=== PATIENT | male | born 1955 | race Caucasian/White ===

== ENCOUNTER 2019-01-15 10:09 | Emergency (ER) | payer BC ==
--- NOTE | 2019-01-15 11:01 | EDM.PDOC ---
ED HPI GENERAL MEDICAL PROBLEM - General Chief Complaint: Upper Extremity Injury/Pain Stated Complaint: RIGHT KNEE AND SHOULDER PAIN Time Seen by Provider: 01/15/19 11:00 Source of Information: Reports: Patient History Limitations: Reports: No Limitations - History of Present Illness INITIAL COMMENTS - FREE TEXT/NARRATIVE: 63-year-old male who reports problems with degenerative disease in his left shoulder and left knee who for about the past week as been having pain in his right knee (particularly when going from sitting to standing or pushing off) and his right shoulder. The right shoulder occurred more so after strenuous use with his right arm where he thinks he might have pulled something. However, because his left shoulder and left knee have pain, he uses his right arm and right leg predominantly to get up and move around and he feels that he has injured these areas over time. He reports that the pain in his right shoulder as about a 7-8/10 when he uses it and similar in his right knee when he bends at the knee or pushes off on his right leg. It is a sharp and aching pain. It is worse with activity. He has had no redness or swelling to the right knee or right shoulder. No fever. No chest pain. No shortness of breath. No nausea or vomiting. No localized area of weakness or dizziness. There are no other associated signs or symptoms. There are no other modifying factors. Onset: Other (Approximately one week) Duration: Getting Worse Location: Reports: Upper Extremity, Right (Right shoulder), Lower Extremity, Right (Knee) Quality: Reports: Ache, Sharp, Throbbing Severity: Moderate Improves with: Reports: Immobilization, Rest Worsens with: Reports: Movement Context: Reports: Other (As above) Associated Symptoms: Reports: No Other Symptoms Treatments [employer]: Reports: Acetaminophen R shoulder & knee Pain Score (Numeric/FACES): 8 - Related Data Allergies Allergy/AdvReac Type Severity Reaction Status Date / Time No Known Allergies Allergy Verified 01/15/19 10:20 Home Meds: Home Meds Carvedilol 50 mg PO BID 03/27/15 [History] Furosemide 120 mg PO DAILY 03/27/15 [History] Glimepiride [Amaryl] 2 mg PO BID 03/27/15 [History] Lisinopril 40 mg PO BID 03/27/15 [History] Potassium Chloride [Klor-Con M20] 20 mg PO BID 03/27/15 [History] SitaGLIPtin [Januvia] 100 mg PO DAILY 03/27/15 [History] Valsartan/Hydrochlorothiazide [Diovan Hct 320-12.5 mg Tab] 1 ea PO DAILY [History] atorvaSTATin [Lipitor] 20 mg PO BEDTIME 03/27/15 [History] hydrALAZINE [Apresoline] 200 mg PO BID 03/27/15 [History] Gabapentin [Neurontin] 900 mg BID 01/15/19 [History] Insulin Glargine,Hum.Rec.Anlog [Toujeo Solostar] 20 - 40 units DAILY PRN [History] amLODIPine Besylate [Amlodipine Besylate] 5 mg DAILY 01/15/19 [History] traMADol HCl [Tramadol HCl] 50 mg PO Q6H PRN #16 tablet 01/15/19 [Rx] Past Medical History Cardiovascular History: Reports: Blood Clots/VTE/DVT, High Cholesterol, Hypertension Respiratory History: Reports: PE, Sleep Apnea Other Respiratory History: WEARS CPAP AND O2 AT 1 LITER AT NIGHT. Musculoskeletal History: Reports: Arthritis Neurological History: Reports: Neuropathy, Diabetic Endocrine/Metabolic History: Reports: Diabetes, Type II, Obesity/BMI 30+ Hematologic History: Reports: Other (See Below) (No chronic anticoagulation and present.) Dermatologic History: Reports: Chronic Cellulitis Other Dermatologic History: BOTH LEGS - Infectious Disease History Infectious Disease History: Reports: Chicken Pox, Measles, Mumps - Past Surgical History GI Surgical History: Reports: Colonoscopy Social & Family History - Tobacco Use Smoking Status *Q: Current Every Day Smoker Years of Tobacco use: 40 Packs/Tins Daily: 1 - Caffeine Use Caffeine Use: Reports: Coffee, Soda - Alcohol Use Alcohol Use History: No - Recreational Drug Use Recreational Drug Use: No - Living Situation & Occupation Living situation: Reports: Occupation: Employed (Works at the [employer] here in [place]) Review of Systems - Review of Systems Review Of Systems: See Below Eyes: Reports: No Symptoms Ears: Reports: No Symptoms Nose: Reports: No Symptoms Mouth/Throat: Reports: No Symptoms Respiratory: Reports: No Symptoms Cardiovascular: Reports: No Symptoms GI/Abdominal: Reports: No Symptoms Genitourinary: Reports: No Symptoms Musculoskeletal: Reports: Shoulder Pain (New right shoulder pain as above), Joint Pain (Left shoulder and left knee pain which is chronic and you right knee pain as above.) Skin: Reports: No Symptoms. Denies: Erythema Neurological: Reports: No Symptoms ED EXAM, GENERAL - Physical Exam Exam: See Below Exam Limited By: No Limitations General Appearance: Alert, No Apparent Distress, Obese Eye Exam: Bilateral Eye: EOMI, Normal Inspection, PERRL Ears: Normal External Exam, Hearing Grossly Normal Ear Exam: Bilateral Ear: Auricle Normal Nose: Normal Inspection, Normal Mucosa, No Blood Throat/Mouth: Normal Inspection, Normal Lips, Normal Oropharynx, Normal Voice, No Airway Compromise Head: Atraumatic, Normocephalic Neck: Normal Inspection, Supple, Non-Tender, Full Range of Motion Respiratory/Chest: No Respiratory Distress, Lungs Clear, Normal Breath Sounds, No Accessory Muscle Use, Chest Non-Tender Cardiovascular: Normal Peripheral Pulses, Regular Rate, Rhythm, No Murmur Peripheral Pulses: 2+: Radial (L), Radial (R) GI/Abdominal: Normal Bowel Sounds, Soft, Non-Tender, No Mass Back Exam: Normal Inspection Extremities: Normal Range of Motion (In right knee and right shoulders despite pain), Normal Capillary Refill, Pedal Edema (Bilaterally). No: Joint Swelling, Increased Warmth, Redness Neurological: Alert, Oriented, CN II-XII Intact, Normal Cognition, No Motor/ Sensory Deficits Skin Exam: Warm, Dry, Intact, Normal Color, No Rash Course - Vital Signs Last Recorded V/S: Last Vital Signs Temp 36.8 C 01/15/19 10:17 Pulse 61 01/15/19 12:49 Resp 20 01/15/19 12:49 BP 140/64 01/15/19 12:49 Pulse Ox 98 01/15/19 12:49 - Orders/Labs/Meds Orders: Active Orders 24 hr Category Date Time Status Knee 3V Rt [CR] Stat Exams 01/15/19 11:14 Taken Shoulder Comp Rt [CR] Stat Exams 01/15/19 11:14 Taken - Radiology Interpretation Free Text/Narrative:: Right shoulder x-ray shows no fracture and no malalignment. Right knee x-ray shows some degenerative changes but no fracture and no malalignment. - Re-Assessments/Exams Free Text/Narrative Re-Assessment/Exam: 01/15/19 12:41: Patient's x-ray shows some degenerative changes. He appears to have a degenerative condition in his right knee and the bleeding a ligamentous or connective tissue injury to his right shoulder. He is advised to any strenuous use with his right arm and try to rest both areas. He should do range of motion with his right shoulder. He may take ibuprofen intermittently for his pain and I have given him a prescription for tramadol that he should take for more severe pain. He may also take Tylenol 1000 mg by mouth every 6 hours as needed for pain. Departure - Departure Time of Disposition: 12:45 Disposition: Home, Self-Care 01 Condition: Good Clinical Impression: Right knee pain Qualifiers: Chronicity: acute Qualified Code(s): M25.561 - Pain in right knee Right knee DJD Qualifiers: Osteoarthritis type: unspecified Qualified Code(s): M17.11 - Unilateral primary osteoarthritis, right knee Right shoulder strain Qualifiers: Encounter type: initial encounter Qualified Code(s): S46.911A - Strain of unspecified muscle, fascia and tendon at shoulder and upper arm level, right arm , initial encounter - Discharge Information Prescriptions: traMADol HCl [Tramadol HCl] 50 mg PO Q6H PRN #16 tablet PRN Reason: Moderate to severe pain Instructions: Shoulder Pain, [id number], Muscle Strain, [id number], Pain Medicine Instructions, [id number], Knee Pain, Adult, [id number] Referrals: Cortez Mcbride MD [Primary Care Provider] - Forms: ED Department Discharge Additional Instructions: The x-rays of your right shoulder and right knee show degenerative changes but no fracture or malalignment. As we discussed, you may have ligament or connective tissue injury to your right shoulder. You do have degenerative changes in your right knee and you could have a meniscus injury to this knee. You will need to follow-up with your orthopedic doctor as scheduled in regard to these problems. You should avoid strenuous use with your right arm and try to rest both areas. You should do range of motion with your right shoulder as shown in the emergency department. You may take Tylenol 1000 mg by mouth every 6 hours as needed for pain. You may also take ibuprofen 600-800 mg by mouth every 8 hours as needed for pain for a short period of time. Medication as prescribed for more severe pain (tramadol 50 mg). Keep your follow-up appointment with the orthopedic doctor as scheduled. Back to the emergency department for increase in pain, redness over the joint area, increased warmth in the area, increased swelling or any other concerning sign or symptom. - My Orders Last 24 Hours: My Active Orders 01/15/19 11:14 Knee 3V Rt [CR] Stat Shoulder Comp Rt [CR] Stat - Assessment/Plan Last 24 Hours: My Active Orders 01/15/19 11:14 Knee 3V Rt [CR] Stat Shoulder Comp Rt [CR] Stat
[2019-01-15 13:38] VITALS: BP 140/64
== END 2019-01-15 13:01 | disposition home or self-care (01) ==
LOC: FB.ED 10:09
DX: S46.911A Strain of unspecified muscle, fascia and tendon at shoulder and upper arm level, right arm, initial encounter (principal); M17.11 Unilateral primary osteoarthritis, right knee; E11.40 Type 2 diabetes mellitus with diabetic neuropathy, unspecified; E66.9 Obesity, unspecified; Z68.30 Body mass index [BMI] 30.0-30.9, adult; E78.00 Pure hypercholesterolemia, unspecified; I10 Essential (primary) hypertension; F17.210 Nicotine dependence, cigarettes, uncomplicated; Z79.4 Long term (current) use of insulin; Z79.899 Other long term (current) drug therapy; X50.9XXA Other and unspecified overexertion or strenuous movements or postures, initial encounter
CPT/HCPCS: 73030-RT; 73562-RT; 99283-25